=== PATIENT | female | born 1955 | race Caucasian/White ===

== ENCOUNTER → 2017-03-14 | Outpatient (CLI) | payer MEDICAID ==
[~2017-03-14] MED LIST: LEVOTHYROXINE0.05 MG NG; LISINOPRIL/HCTZ1 TA3 PO; LORTAB 500 MG-71 TAB PO; VICODIN 5/500 T1 TAB PO
[2017-03-14 14:22] LABS: HEMOGLOBIN 13.5 g/dL (12.2-16.2); LYMPH # 3.9 K/mm3 (0.7-4.5); LYMPH % 33.6 % (10-50.0)
[2017-03-14 14:50] LABS: BUN 16 mg/dL (7-18); GFR (ESTIMATED) 51 ML/MIN (59-)
== END ==
LOC: LAB 14:04
PROVIDERS: Physician Assistant
DX: R07.9 Chest pain, unspecified (principal)